=== PATIENT | female | born 1995 | race Caucasian/White ===

== ENCOUNTER 2018-10-07 01:23 | Emergency (ER) | payer SELFPAY ==
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
[2018-10-07 02:02] VITALS: BP 125/77
== END 2018-10-07 02:00 ==
DX: S40.022A Contusion of left upper arm, initial encounter (principal); S60.512A Abrasion of left hand, initial encounter; V48.5XXA Car driver injured in noncollision transport accident in traffic accident, initial encounter; Y92.411 Interstate highway as the place of occurrence of the external cause